=== PATIENT | female | born 1995 | race Caucasian/White ===

== ENCOUNTER 2018-05-25 10:19 | Emergency (ER) | payer OTHER ==
[2018-05-25 10:47] VITALS: BP 117/78; PULSE 89; TEMP 99.1; BMI 25.9
[2018-05-25] MEDS ORDERED: DIPHTH,PERTUSS(ACELL),TET 0.5 ML DISP.SYRIN IM ONE ×2 (11:17→11:22)
--- NOTE | 2018-05-25 11:23 | PDOC ---
History of Present Illness - General Chief Complaint: Bite Stated Complaint: DOG BITE/WC Time Seen by Provider: 05/25/18 10:53 History Source: Patient Exam Limitations: No Limitations - History of Present Illness Initial Comments: 05/25/18 11:40 Patient is a 23-year-old female who presents to the emergency department today for a dog bite to her left forearm. 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 Patient states she is also received the rabies vaccinations approximately 3 years ago after getting bit by a stray cat. Patient states that today she was holding the leash of a husky when his muzzle came off and he bit her left forearm. 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 The dog is to also be watched over the next 2 days. Denies fevers, chills, numbness and tingling to the extremity, weakness of the arm. Past History - Travel Traveled outside of the country in the last 30 days: No Close contact w/someone who was outside of country & ill: No - Past Medical History Allergies/Adverse Reactions: Allergies Allergy/AdvReac Type Severity Reaction Status Date / Time No Known Allergies Allergy Verified 05/25/18 10:39 Home Medications: Ambulatory Orders Amox-Tr/K Cl [Augmentin - 875Mg Tablet] 1 tab PO BID #20 tablet 05/25/18 COPD: No Other medical history: DENIES. - Suicide/Smoking/Psychosocial Hx Smoking History: Never smoked Review of Systems - Review of Systems Able to Perform ROS?: Yes Comments:: 05/25/18 12:43 CONSTITUTIONAL: Absent: fever, chills, diaphoresis, generalized weakness, malaise, loss of appetite HEENT: Absent: rhinorrhea, nasal congestion, throat pain, throat swelling, difficulty swallowing, mouth swelling, ear pain, eye pain, visual Changes CARDIOVASCULAR: Absent: chest pain, loss of consciousness, palpitations, irregular heart rate, peripheral edema RESPIRATORY: Absent: cough, shortness of breath, dyspnea with exertion, orthopnea, wheezing, stridor, hemoptysis GASTROINTESTINAL: Absent: abdominal pain, abdominal distension, nausea, vomiting, diarrhea, constipation, melena, hematochezia GENITOURINARY: Absent: dysuria, frequency, urgency, hesitancy, hematuria, flank pain, genital pain MUSCULOSKELETAL: Absent: myalgia, arthralgia, joint swelling SKIN: Present: dog bite, bruising Absent: rash, itching, pallor HEMATOLOGIC/IMMUNOLOGIC: Absent: easy bleeding, easy bruising, lymphadenopathy, frequent infections ENDOCRINE: Absent: unexplained weight gain, unexplained weight loss, heat intolerance, cold intolerance NEUROLOGIC: Absent: headache, focal weakness or paresthesias, dizziness, unsteady gait, seizure, mental status changes, bladder or bowel incontinence PSYCHIATRIC: Absent: anxiety, depression, suicidal or homicidal ideation, hallucinations. Is the patient limited Tamazight proficient: No *Physical Exam - Vital Signs Last Vital Signs Temp Pulse Resp BP Pulse Ox 99.1 F 89 18 117/78 98 05/25/18 10:39 05/25/18 10:39 05/25/18 10:39 05/25/18 10:39 05/25/18 10:39 - Physical Exam Comments: 05/25/18 12:43 GENERAL: The patient is awake, alert, and fully oriented, in no acute distress. HEAD: Normal with no signs of trauma. EYES: Pupils equal, round and reactive to light, extraocular movements intact, sclera anicteric, conjunctiva clear. EXTREMITIES: Normal range of motion, no edema. NEUROLOGICAL: Normal speech, normal gait. PSYCH: Normal mood, normal affect. SKIN: L ventral forearm bruising and dog bite abrasions. Warm, Dry, normal turgor, no rashes or lesions noted. Moderate Sedation - Procedure Monitoring Vital Signs: Procedure Monitoring Vital Signs Temperature 99.1 F 05/25/18 10:39 Pulse Rate 89 05/25/18 10:39 Respiratory Rate 18 05/25/18 10:39 Blood Pressure 117/78 05/25/18 10:39 O2 Sat by Pulse Oximetry (%) 98 05/25/18 10:39 Medical Decision Making - Medical Decision Making 05/25/18 12:53 Pt is a 23 y/o F who presents to the ED with a dog bite sustained at work to her L forearm -Tetanus shot updated -Pt does not meet requirements for rabies vaccination at this time. Dog is UTD on his rabies vaccinations and will be observed for the next two days -Wound was cleaned and dressed -Pt was placed on Augmentin prophylactically -DC home -I discussed the physical exam findings, ancillary test results and final diagnoses with the patient. I answered all of the patient's questions. The patient was satisfied with the care received and felt comfortable with the discharge plan and treatment plan. The Patient agrees to follow up with the primary care physician/specialist within 24-72 hours. Return precautions were given. *DC/Admit/Observation/Transfer Diagnosis at time of Disposition: Dog bite Qualifiers: Encounter type: initial encounter Qualified Code(s): W54.0XXA - Bitten by dog, initial encounter - Discharge Dispostion Disposition: HOME Condition at time of disposition: Stable Decision to Admit order: No - Prescriptions Prescriptions: Amox-Tr/K Cl [Augmentin - 875Mg Tablet] 1 tab PO BID #20 tablet - Referrals Referrals: Radu Coulter MD [Staff Physician] - - Patient Instructions Printed Discharge Instructions: DI for Animal Bites Additional Instructions: You were bit by a dog We did not need to update your Rabies vaccination as the dog is up to date on his rabies vaccinations Follow up with the owners in two days to see if the dog has any behavioral changes. If so, return for the rabies booster as you have already had a rabies series Your tetanus shot was updated today Keep the wound clean and dry Take the augmenting twice a day for 10 days to prevent infection Follow up with your primary care doctor this week Return to the ED for signs of infection including fever, drainage from the site , increased redness, or if you have any changes in your symptoms - Post Discharge Activity Forms/Work/School Notes: Back to Work
== END 2018-05-25 11:33 | disposition home or self-care (01) ==
LOC: JERFT 10:19 → JER 10:19 → JERFT 11:33
CPT/HCPCS: 90715; 99281-25

== ENCOUNTER 2018-11-29 19:28 | Emergency (ER) | payer OTHER ==
[2018-11-29 19:33] VITALS: BP 133/70; PULSE 72; TEMP 98.4; BMI 26.4
--- NOTE | 2018-11-29 19:36 | PDOC ---
Rapid Medical Evaluation Chief Complaint: Bite Time Seen by Provider: 11/29/18 19:32 Medical Evaluation: Allergies Allergy/AdvReac Type Severity Reaction Status Date / Time No Known Allergies Allergy Verified 11/29/18 19:33 Vital Signs Temp Pulse Resp BP Pulse Ox 98.4 F 72 18 133/70 99 11/29/18 19:31 11/29/18 19:31 11/29/18 19:31 11/29/18 19:31 11/29/18 19:31 11/29/18 19:34 I have performed a brief in-person evaluation of this patient. 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 Pt's tetanus UTD Pertinent physical exam findings:Dressing in place to digit I have ordered the following:nothing The patient will proceed to the ED for further evaluation. Discharge Disposition - Diagnosis Cat bite Qualifiers: Encounter type: initial encounter Qualified Code(s): W55.01XA - Bitten by cat, initial encounter - Referrals - Patient Instructions - Post Discharge Activity
--- NOTE | 2018-11-29 21:10 | PDOC ---
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 Patient's last tetanus was in 2018, given in the ER here. Patient has documentation of animal bite report that was faxed to [facility] from the hospital. GENERAL/CONSTITUTIONAL: No fever, weakness. dizziness HEAD, EYES, EARS, NOSE AND THROAT: No change in vision. No ear pain or discharge. No sore throat. CARDIOVASCULAR: No chest pain RESPIRATORY: No shortness of breath or cough GASTROINTESTINAL: No pain, nausea, vomiting, diarrhea or constipation GENITOURINARY: No dysuria MUSCULOSKELETAL: No neck or back pain SKIN: No rash, + cat bite NEUROLOGIC: No headache, vertigo, loss of consciousness, or loss of sensation. GENERAL: The patient is awake, alert, and fully oriented, in no acute distress. HEAD: Normal with no signs of trauma. EYES: Pupils equal, round and reactive to light, sclera anicteric, conjunctiva clear. ENT: pharynx: no erythema, no exudate, uvula midline NECK: supple CHEST: clear, nontender, rr ABD: soft, nontender BACK: no tenderness or signs of injury EXTREMITIES: He middle finger with small superficial abrasion at the nail base, not involving the nail, no swelling, no erythema, full range of motion, neurovascular intact. Rest of extremities, Normal range of motion, no edema. NEUROLOGICAL: Normal speech, normal gait. SKIN: Warm, Dry Past History - Past Medical History Allergies/Adverse Reactions: Allergies Allergy/AdvReac Type Severity Reaction Status Date / Time No Known Allergies Allergy Verified 11/29/18 19:33 Home Medications: Ambulatory Orders Amox-Tr/K Cl [Augmentin - 875Mg Tablet] 1 tab PO BID #14 tablet 11/29/18 COPD: No - Suicide/Smoking/Psychosocial Hx Smoking History: Never smoked *Physical Exam - Vital Signs Last Vital Signs Temp Pulse Resp BP Pulse Ox 98.4 F 72 18 133/70 99 11/29/18 19:31 11/29/18 19:31 11/29/18 19:31 11/29/18 19:31 11/29/18 19:31 Medical Decision Making - Medical Decision Making 11/29/18 21:08 Patient who works at a [employer] was bitten by a cat to the right middle finger today, animal report already faxed to [facility] from the [facility], tetanus is up-to-date. Will put on Augmentin with strict return instructions. *DC/Admit/Observation/Transfer Diagnosis at time of Disposition: Cat bite Qualifiers: Encounter type: initial encounter Qualified Code(s): W55.01XA - Bitten by cat, initial encounter - Discharge Dispostion Disposition: HOME Condition at time of disposition: Stable - Prescriptions Prescriptions: Amox-Tr/K Cl [Augmentin - 875Mg Tablet] 1 tab PO BID #14 tablet - Referrals Referrals: Mode Stout MD [Primary Care Provider] - - Patient Instructions Printed Discharge Instructions: DI for Animal Bites Additional Instructions: Clean with soap and water 2-3 times daily, apply bacitracin Augmentin every 12 hours for 7 days Have her reevaluated if redness, pus, fever or getting worse Followup with your doctor - Post Discharge Activity
[2018-11-29] MEDS ORDERED: BACITRACIN 15 GM TUBE TOPICAL OINTMENT ONE (21:11)
== END 2018-11-29 21:14 | disposition home or self-care (01) ==
LOC: JERFT 19:28
DX: S60.472A Other superficial bite of right middle finger, initial encounter (principal); W55.01XA Bitten by cat, initial encounter; Y93.K9 Activity, other involving animal care; Y92.538 Other ambulatory health services establishments as the place of occurrence of the external cause; Y99.0 Civilian activity done for income or pay
CPT/HCPCS: 99281-25